=== PATIENT | female | born 1985 | race Caucasian/White ===

== ENCOUNTER 2019-01-04 20:01 | Emergency (ER) | payer BC ==
[~2019-01-04] VITALS: Ht 167.6 cm; Wt 90.7 kg
--- NOTE | 2019-01-04 20:39 | NUR ---
patient came from home with chief complaint of Fever and generalized body aches. patient stated that she has been feeling sick for the past few days. Patient stated she has taken tylenol but it has not helped with the fever.
[2019-01-04 20:58] LABS: *URINE HCG, QUAL NEGATIVE (NEGATIVE)
[2019-01-04 21:05] LABS: *BILIRUBIN,URIN NEGATIVE (NEGATIVE); *BLOOD, URINE 3+ (NEGATIVE); *CLARITY,URINE CLOUDY (CLEAR); *KETONES,URINE NEGATIVE (NEGATIVE); NITRITE, URINE NEGATIVE (NEGATIVE); UGLUCOSE NEGATIVE (NEGATIVE)
[2019-01-04] MEDS ORDERED: NAPROXEN 500 MG TABLET ONE (21:15)
[2019-01-04] MEDS ORDERED: NAPROXEN 500 MG TABLET PO ONE (21:15)
[2019-01-04 21:16] LABS: *COLOR,URINE Brown (YELLOW); LEUKOCYTE ESTERASE ,URINE 1+ (NEGATIVE)
[2019-01-04 21:17] LABS: RBC,URINE TNTC /HPF (0-3); SQUAMOUS EPITHELIAL CELL,UR FEW /HPF (NONE SEEN); WBC,URINE 20-50 /HPF (0-3)
--- NOTE | 2019-01-04 21:24 | NUR ---
Patient discharged to home in stable conditon. Written and verbal after care instructions given. Patient verbalizes understanding of instructions. patient alert and oriente x4. Patient self ambulatory with steady gait. Exit care and personal belongings taken with patient at discharge.
[2019-01-04 21:26] VITALS: BP 110/72
== END 2019-01-04 21:29 | disposition home or self-care (01) ==
LOC: ER 20:02
DX: J06.9 Acute upper respiratory infection, unspecified (principal); R07.89 Other chest pain; F15.10 Other stimulant abuse, uncomplicated
CPT/HCPCS: 84703; 87086; A4663